=== PATIENT | male | born 1970 | race Caucasian/White ===

== ENCOUNTER 2017-10-04 18:56 | Emergency (ER) | payer SELFPAY ==
[~2017-10-04] VITALS: Ht 188 cm; Wt 72.0 kg
[2017-10-04 18:59] VITALS: BP 138/78
== END 2017-10-05 01:30 | disposition left against medical advice (07) ==
LOC: ER 18:56
DX: T51.0X1A Toxic effect of ethanol, accidental (unintentional), initial encounter (principal); R41.82 Altered mental status, unspecified; F12.10 Cannabis abuse, uncomplicated; F17.200 Nicotine dependence, unspecified, uncomplicated; Y90.8 Blood alcohol level of 240 mg/100 ml or more; R03.0 Elevated blood-pressure reading, without diagnosis of hypertension; Y92.488 Other paved roadways as the place of occurrence of the external cause
CPT/HCPCS: 36415; 99283; G0482